=== PATIENT | female | born 1980 | race Caucasian/White ===

== ENCOUNTER 2016-12-21 17:17 | Inpatient (IN) | payer OTHER ==
[2016-12-21] VITALS (60 sets, daily range): BP systolic 102; BP diastolic 53; PULSE 80–110; RESP 18; TEMP 98.2
[~2016-12-21] VITALS: Ht 154.9 cm; Wt 70.0 kg
[2016-12-21] MEDS ORDERED: LACTATED RINGER'S 1000 ML INJ 1,000 ML IV PRN (18:11)
[2016-12-21] MEDS ORDERED: OXYTOCIN 30 UNITS-500ML PREMIX 500 ML IV ONE (18:15)
[2016-12-21] MEDS ORDERED: OXYTOCIN 30 UNITS-500ML PREMIX 500 ML IV SCH (18:15)
[2016-12-21] MEDS ORDERED: SODIUM CHLORIDE 0.9% FLUSH 10 ML FLUSH IV FLUSH PRN (18:15)
[2016-12-21] MEDS ORDERED: CITRIC ACID-SODIUM CITRATE LIQ 30 ML UDC PO SCH (18:15)
[2016-12-21] MEDS ORDERED: SODIUM CHLORID 0.9% 500 ML INJ 500 ML IV PRN (18:15)
[2016-12-21] MEDS ORDERED: DINOPROSTONE 10 MG VAG INSERT VAGINAL ONE (18:15)
[2016-12-21] MEDS ORDERED: LIDOCAINE HCL 1% 50 ML VIAL I-DERMAL PRN (18:15)
[2016-12-21] MEDS ORDERED: MINERAL OIL 10 ML VIAL TOPICAL PRN (18:15)
[2016-12-21] MEDS ORDERED: LIDOCAINE HCL 1% 50 ML VIAL INFIL PRN (18:15)
[2016-12-21] MEDS ORDERED: PREN29TA PO (18:22)
[2016-12-21] MEDS ORDERED: SODIUM CHLOR 0.9% 1000 ML INJ 1,000 ML IV PRN (18:31)
[2016-12-21] MEDS: LACTATED RINGER'S 1000 ML INJ 1,000 ML IV SCH ×2 (18:44→22:24)
[2016-12-21 19:06] LABS: AUTOMATED NEUTROPHIL # 8.8 TH/MM3 (1.8-7.7); BASOPHIL % 0.3 % (0.0-2.0); EOSINOPHIL # 0.3 TH/MM3 (0-0.4); EOSINOPHIL % 2.1 % (0.0-4.0); HEMATOCRIT 38.8 % (35.0-46.0); HEMO FLAGS DIFF FINAL; LYMPH % 18.9 % (9.0-44.0); LYMPHOCYTE # 2.3 TH/MM3 (1.0-4.8); MEAN CELL VOLUME 88.2 FL (80.0-100.0); MEAN CORPUSCULAR HEMOGLOBIN 30.3 PG (27.0-34.0); MEAN CORPUSCULAR HGB CONC 34.3 % (32.0-36.0); MONO % 6.6 % (0.0-8.0); NEUT % 72.1 % (16.0-70.0); PLATELET COUNT 241 TH/MM3 (150-450); RED CELL DISTRIBUTION WIDTH 13.8 % (11.6-17.2); WHITE BLOOD COUNT 12.2 TH/MM3 (4.0-11.0)
[2016-12-21 19:09] LABS: BLOOD, URINE NEG (NEG); COMMENT (UR) CULT NOT INDICATED; CULTURE IF INDICATED CULT NOT INDICATED; GLUCOSE,URINE NEG (NEG); KETONE, URINE NEG (NEG); MUCUS URINE FEW /lpf (OCC); NITRITE,URINE NEG (NEG); PH, URINE 5.5 (5.0-8.5); SQUAMOUS EPITHELIAL CELL URINE <1 /hpf (0-5); URINE COLOR YELLOW (YELLW/STRAW)
[2016-12-21] MEDS: SODIUM CHLORIDE 0.9% FLUSH 10 ML FLUSH IV FLUSH SCH (21:00)
[2016-12-22] VITALS (217 sets, daily range): BP systolic 78–126; BP diastolic 52–87; PULSE 48–149; RESP 16–21; TEMP 97.9–99.6
[2016-12-22] MEDS: LACTATED RINGER'S 1000 ML INJ 1,000 ML IV SCH ×2 (06:25→11:13)
[2016-12-22] MEDS: SODIUM CHLORIDE 0.9% FLUSH 10 ML FLUSH IV FLUSH SCH (07:22)
--- NOTE | 2016-12-22 09:12 | MH ---
cc: SHERRY LEE DATE OF ADMISSION: 12/21/2016 HISTORY OF PRESENT ILLNESS The patient is a 36-year-old, 1, para 0, who presented to the office complaining of decreased movement. The patient had a biophysical profile performed that showed an CAMERON of 6.2 and thus presents for induction of labor at 39+ weeks gestation. She denied leakage of fluid, vaginal bleeding or regular contractions. PAST MEDICAL HISTORY Negative. PAST SURGICAL HISTORY Negative. OB HISTORY This is her first . [employer] HISTORY No history of STDs or abnormal Pap smears. SOCIAL HISTORY Negative for cigarettes, alcohol or street drugs. The patient is and is a homemaker. FAMILY HISTORY Her maternal grandmother had bladder cancer. Siblings with hypertension. ALLERGIES None. PHYSICAL EXAMINATION VITAL SIGNS: She is afebrile. Height 5 feet 1 inch, weight 155. Blood pressure 102/66. GENERAL: She is in no acute distress. HEART: Regular rate and rhythm. LUNGS: Clear to auscultation bilaterally. ABDOMEN: Gravid, nontender. EXTREMITIES: 1-2+ lower extremity edema bilaterally. No tenderness. IMPRESSION at 39+ weeks gestation with equivocal CAMERON for induction of labor. The patient is status post Cervidil, is currently receiving Pitocin. Membranes have been artificially ruptured for clear fluid. Her Group-B strep is negative. PLAN Continue Pitocin and anticipate vaginal delivery. Sherry Lee MD TEG/BT /8:56 AM /9:03 AM
[2016-12-22] MEDS ORDERED: INFLUENZA VIRUS VACCINE (QUADRIVALENT) 0.5 ML SYR IM ONE (10:00)
[2016-12-22] MEDS: ONDANSETRON HCL 4 MG/2 ML VIAL IV PUSH PRN ×2 (11:13→21:03)
[2016-12-22] MEDS ORDERED: ePHEDrine/NS 25 MG/5 ML SYR ONE (11:24)
[2016-12-22] MEDS ORDERED: fentaNYL 2MCG-BUPIV 0.125% INJ 100 ML ONE (11:24)
[2016-12-22] MEDS ORDERED: NO SYSTEM NARCOTICS PRN (14:00)
[2016-12-22] MEDS ORDERED: DO NOT ADMINISTER ANTICOAGULANTS PRN (14:00)
[2016-12-22] MEDS ORDERED: ePHEDrine/NS 25 MG/5 ML SYR IV PUSH PRN (14:00)
[2016-12-22] MEDS: fentaNYL 2MCG-BUPIV 0.125% 100 ML EPIDURAL SCH (18:52)
--- NOTE | 2016-12-22 22:53 | PD.LABORPN ---
Subjective Subjective pt comfortable with contractions. Objective Vital Signs Vital Signs Date Time Temp Pulse Resp B/P (MAP) Pulse Ox O2 Delivery O2 Flow Rate FiO2 12/22/16 21:55 18 12/22/16 21:30 99.0 104 122/79 (93) 12/22/16 21:01 16 12/22/16 20:30 94 118/67 (84) 12/22/16 20:00 91 107/59 (75) 12/22/16 19:45 99.0 12/22/16 19:32 16 12/22/16 19:30 89 104/58 (73) 12/22/16 19:00 94 121/75 (90) 12/22/16 19:00 98.0 16 12/22/16 18:32 85 115/52 (73) 12/22/16 18:30 85 78/57 (64) 12/22/16 18:10 90 12/22/16 18:05 102 12/22/16 18:00 96 109/63 (78) 12/22/16 18:00 99 12/22/16 17:55 107 12/22/16 17:50 101 12/22/16 17:45 113 12/22/16 17:40 96 12/22/16 17:35 105 12/22/16 17:30 94 110/74 (86) 12/22/16 17:25 88 12/22/16 17:20 92 12/22/16 17:15 89 12/22/16 17:10 87 12/22/16 17:05 91 12/22/16 17:00 91 110/66 (81) 12/22/16 17:00 88 12/22/16 16:50 96 12/22/16 16:45 91 12/22/16 16:40 95 12/22/16 16:35 94 12/22/16 16:30 95 126/75 (92) 12/22/16 16:30 100 12/22/16 16:25 93 12/22/16 16:20 93 12/22/16 16:15 88 12/22/16 16:10 87 12/22/16 16:05 88 12/22/16 16:00 91 115/71 (86) 12/22/16 15:55 89 12/22/16 15:50 90 12/22/16 15:45 91 12/22/16 15:40 108 12/22/16 15:35 86 12/22/16 15:30 84 12/22/16 15:30 98.2 12/22/16 15:30 80 106/58 (74) 12/22/16 15:25 84 12/22/16 15:20 78 12/22/16 15:15 76 12/22/16 15:05 81 12/22/16 15:00 107/72 (84) 12/22/16 15:00 85 12/22/16 14:55 75 12/22/16 14:50 78 Objective Pelvic Exam: Cervix: [-] Dilatation: [-] 6-7/90/-2 Effacement: [-] Station: [-] Presentation: [-] Membranes: [intact or ruptured] ruptured Uterine Contractions: [-] quiet FHT's: Category: [-] 1 Baseline: [-] 140s Reactive: [-] reactive Variability: [-] Decels: [-] Weeks Gestation: 39 Gest Age Assessed Date: Dec 22, 2016 Gest Age Assessed Time: 08:55 Pt started active labor?: No Medical induction of labor?: Yes Medical induction start date: Dec 21, 2016 Medical induction start time: 17:19 Artificial rupture of membrane: Yes Artificial ROM date: Dec 22, 2016 Artifical ROM time: 08:55 Assessment/Plan Problem List: (1) CAMERON (amniotic fluid index) decreased ICD Codes: O28.8 - Other abnormal findings on screening of mother Status: Acute Plan: pt s/p cervidil and pit to 28, turned off for 1 hour. pt wants to try to avoid . reviewed restarting pit in attempts to get to adequate MVUs. okay to proceed as long as reassuring fhts and afebrile. reviewed that pt is off of labor curve and is indicated. all questions answered. Sherry Levine MD Dec 22, 2016 22:53
[2016-12-23] VITALS (24 sets, daily range): BP systolic 101–134; BP diastolic 57–82; PULSE 84–124; RESP 16–18; TEMP 98.2–100.5; O2SAT 97–99
[2016-12-23] MEDS ORDERED: BUPIVACAINE HCL PF 0.25% 10 ML VIAL ONE (01:41)
[2016-12-23] MEDS: LACTATED RINGER'S 1000 ML INJ 1,000 ML IV SCH (02:11)
[2016-12-23] MEDS ORDERED: AMPICILLIN/SULBAC 3 GM/NS 100 ML IV SCH ×2 (04:15)
[2016-12-23] MEDS ORDERED: ACETAMINOPHEN 325 MG TAB PO SCH (04:15)
[2016-12-23] MEDS: fentaNYL 2MCG-BUPIV 0.125% 100 ML EPIDURAL SCH (04:20)
[2016-12-23] MEDS ORDERED: ONDANSETRON HCL 4 MG/2 ML VIAL IV PUSH PRN (06:15)
[2016-12-23] MEDS ORDERED: LACTATED RINGER'S 1000 ML INJ 1,000 ML IV ONE ×2 (06:15→12:00)
[2016-12-23] MEDS ORDERED: OXYTOCIN 30 UNITS-500ML PREMIX 500 ML IV ONE (06:15)
[2016-12-23] MEDS ORDERED: OXYTOCIN 10 UNIT/ML AMP XX ONE (06:15)
[2016-12-23] MEDS ORDERED: oxyCODONE/ACETAMINOPHEN 5 MG/325 MG TAB PO PRN (06:15)
[2016-12-23] MEDS ORDERED: KETOROLAC TROMETHAMINE 60 MG/2 ML (IM) VIAL IM PRN ×2 (06:15)
[2016-12-23] MEDS ORDERED: ACETAMINOPHEN 1000 MG/100 ML 100 ML IV ONE ×2 (06:15→07:47)
[2016-12-23] MEDS ORDERED: SODIUM CHLORIDE 0.9% FLUSH 10 ML FLUSH IV FLUSH PRN (06:15)
[2016-12-23] MEDS ORDERED: OXYTOCIN 10 UNIT/ML AMP XX PRN (06:15)
[2016-12-23] MEDS ORDERED: ZOLPIDEM TARTRATE 5 MG TAB PO PRN (06:15)
--- NOTE | 2016-12-23 06:24 | PD.LABORPN ---
Subjective Subjective pt comfortable with epidural Objective Vital Signs Vital Signs Date Time Temp Pulse Resp B/P (MAP) Pulse Ox O2 Delivery O2 Flow Rate FiO2 12/23/16 05:51 16 12/23/16 05:30 124 123/82 (96) 12/23/16 05:00 114 134/70 (91) 12/23/16 04:55 99.7 12/23/16 04:30 104 122/61 (81) 12/23/16 03:56 100.5 12/23/16 03:30 103 129/71 (90) 12/23/16 03:10 18 12/23/16 03:00 101 18 114/79 (91) 12/23/16 02:30 101 112/74 (87) 12/23/16 01:11 98.9 12/23/16 01:09 18 12/23/16 01:00 92 119/67 (84) 12/23/16 00:30 104 130/74 (92) 12/23/16 00:22 18 12/23/16 00:00 100 110/58 (75) 12/22/16 23:47 18 12/22/16 23:31 105 117/67 (84) 12/22/16 23:14 99.6 12/22/16 22:30 108 122/69 (86) Objective Pelvic Exam: Cervix: [-] Dilatation: [-] 7-8 Effacement: [-] 90 Station: [-] -2 Presentation: [-] +molding Membranes: [intact or ruptured] ruptured Uterine Contractions: [-] FHT's: Category: [-] 1 Baseline: [-] 140s Reactive: [-] yes Variability: [-] Decels: [-] Weeks Gestation: 39 Gest Age Assessed Date: Dec 22, 2016 Gest Age Assessed Time: 08:55 Pt started active labor?: No Medical induction of labor?: Yes Medical induction start date: Dec 21, 2016 Medical induction start time: 17:19 Artificial rupture of membrane: Yes Artificial ROM date: Dec 22, 2016 Artifical ROM time: 08:55 Assessment/Plan Problem List: (1) Failure to progress in labor ICD Codes: O62.2 - Other uterine inertia Status: Acute Plan: reviewed exam and position. recommended . pt and agree. r/b/alt reviewed. all questions answered. will proceed. Sherry Levine MD Dec 23, 2016 06:24
[2016-12-23] MEDS ORDERED: LACTATED RINGER'S 1000 ML INJ 1,000 ML IV SCH ×2 (06:45→11:15)
[2016-12-23] MEDS ORDERED: METHYLERGONOVINE MALEATE 0.2 MG/ML VIAL ONE (06:51)
[2016-12-23] MEDS ORDERED: ceFAZolin 2 GM PREMIX 50 ML IV SCH (07:15)
[2016-12-23] MEDS ORDERED: CITRIC ACID-SODIUM CITRATE LIQ 30 ML UDC PO SCH (07:45)
[2016-12-23] MEDS ORDERED: SODIUM CHLORIDE 0.9% FLUSH 10 ML FLUSH IV FLUSH SCH (09:00)
[2016-12-23] MEDS ORDERED: KETOROLAC TROMETHAMINE 60 MG/2 ML (IM) VIAL IM ONE (09:03)
[2016-12-23] MEDS ORDERED: EPIDURAL-DO NOT ADMINISTER ANTICOAGULANTS PRN (10:15)
[2016-12-23] MEDS ORDERED: EPIDURAL-NO SYSTEMIC NARCOTICS PRN (10:15)
[2016-12-23] MEDS ORDERED: EPIDURAL-NALOXONE HCL 0.4 MG/ML AMP IV PUSH PRN (10:15)
[2016-12-23] MEDS ORDERED: EPIDURAL-DIPHENHYDRAMINE HCL 50 MG CAP PO PRN (10:15)
[2016-12-23] MEDS ORDERED: EPIDURAL-DIPHENHYDRAMINE HCL 50 MG/ML VIAL IV PUSH PRN (10:15)
[2016-12-23] MEDS ORDERED: OXYTOCIN 10 UNIT/ML AMP IV ONE (12:00)
[2016-12-23] MEDS ORDERED: MORPHINE SULFATE PF 5 MG/10 ML VIAL ONE (12:00)
[2016-12-23] MEDS ORDERED: LIDOCAINE 2%/EPINEPHrine PF 1:200,000 20ML SDV OTHER ONE (12:00)
[2016-12-23] MEDS ORDERED: DEXAMETHASONE SOD PHOS 4 MG/ML VIAL IV ONE (12:00)
[2016-12-23] MEDS ORDERED: PHENYLEPH/NS 1000 MCG/10 ML SYR IV ONE (12:00)
[2016-12-23] MEDS ORDERED: ONDANSETRON HCL 4 MG/2 ML VIAL IV PUSH ONE (12:00)
[2016-12-23] MEDS ORDERED: ceFAZolin INJ 1,000 MG VIAL IV ONE (12:00)
--- NOTE | 2016-12-23 15:28 | MP ---
cc: SHERRY LEE DATE OF SURGERY 12/23/2016 PREOPERATIVE DIAGNOSIS Intrauterine at 39+ weeks gestation, decreased movement, low amniotic fluid index, failure to progress. POSTOPERATIVE DIAGNOSIS Intrauterine at 39+ weeks gestation, decreased movement, low amniotic fluid index, failure to progress. Delivery of viable male . SURGEON Sherry Lee MD ANESTHESIA Epidural. DRAINS King to gravity. SPECIMENS Cord blood. COUNTS Correct x2. DISPOSITION Stable in the PACU. FINDINGS Grossly normal uterus, tubes and ovaries bilaterally and baby was direct OT presentation with a double nuchal cord and shoulder cord. Weight was 7, 14. 's were 9/9. DESCRIPTION OF PROCEDURE After informed consent was obtained the patient was prepped and draped in normal sterile fashion for surgery. A Pfannenstiel skin incision was made two fingerbreadths above the pubic symphysis and carried down to the underlying layer of fascia using the Bovie. The fascia was incised in the midline. The fascial incision was extended laterally digitally. Olman clamps were used to elevate the fascia and the rectus muscles were dissected off superiorly and inferiorly. The rectus muscles were in midline. The peritoneum was identified and entered bluntly. The bladder blade inserted. The vesicouterine peritoneum was identified, tented up and entered sharply. The bladder blade reinserted. Next, a transverse incision was made on the lower uterine segment until a layer just exposing membranes. These are ruptured. The uterine incision was extended laterally digitally. The vertex is then delivered atraumatically. The nuchal cords are reduced along with the shoulder cord. The baby is then passed off to the awaiting nursery team. Cord bloods were obtained. Placenta was removed, manually intact and noted to have a three-vessel cord. The uterus is exteriorized, cleared of all clot and debris. The uterine incision is repaired using one chromic suture in a running locked fashion. A second layer is then placed in an imbricating fashion with good hemostatic with result. Once this was done, tubes and ovaries again were inspected, grossly within normal limits. The uterus was returned to the abdominal cavity. The gutters were cleared of all clot and debris. Seprafilm was placed over the incision. The rectus muscles were reapproximated using 0 chromic suture. The fascia was reapproximated using 0 Vicryl suture in a running fashion. The subcutaneous fat is irrigated and made hemostatic and reapproximated using 3-0 chromic. Finally, the skin is closed using 3-0 Monocryl suture in subcuticular fashion. The patient is then taken to the recovery room in stable condition. MD NEMESIO Harris/EO /7:29 AM /3:17 PM
[2016-12-23] MEDS: oxyCODONE/ACETAMINOPHEN 5 MG/325 MG TAB PO PRN ×2 (15:37→22:29)
[2016-12-23] MEDS: IBUPROFEN 600 MG TAB PO PRN ×2 (15:38→22:29)
[2016-12-23] MEDS: DOCUSATE SODIUM 50 MG/SENNA 8.6 MG TAB PO PRN (15:38)
[2016-12-23] MEDS: SIMETHICONE 80 MG CHEWABLE TAB PO PRN (15:38)
[2016-12-23] MEDS ORDERED: OXYTOCIN 30 UNITS-500ML PREMIX 500 ML IV PRN (16:15)
[2016-12-24 01:00] VITALS: BP 100/68; PULSE 88; RESP 18; TEMP 97.5
[2016-12-24] MEDS: oxyCODONE/ACETAMINOPHEN 5 MG/325 MG TAB PO PRN ×5 (01:59→22:54)
[2016-12-24 05:50] VITALS: BP 100/69; PULSE 80; RESP 18; TEMP 98
[2016-12-24] MEDS: IBUPROFEN 600 MG TAB PO PRN ×3 (06:04→18:01)
[2016-12-24 08:00] VITALS: BP 94/61; PULSE 84; RESP 18; TEMP 97.4
[2016-12-24 09:16] LABS: AUTOMATED NEUTROPHIL # 18.3 TH/MM3 (1.8-7.7); BASOPHIL # 0.1 TH/MM3 (0-0.2); BASOPHIL % 0.2 % (0.0-2.0); EOSINOPHIL # 0.4 TH/MM3 (0-0.4); EOSINOPHIL % 1.6 % (0.0-4.0); HEMATOCRIT 33.6 % (35.0-46.0); HEMO FLAGS DIFF FINAL; LYMPH % 13.9 % (9.0-44.0); LYMPHOCYTE # 3.3 TH/MM3 (1.0-4.8); MEAN CELL VOLUME 88.5 FL (80.0-100.0); MEAN CORPUSCULAR HEMOGLOBIN 30.3 PG (27.0-34.0); MEAN CORPUSCULAR HGB CONC 34.2 % (32.0-36.0); MONO % 6.6 % (0.0-8.0); NEUT % 77.7 % (16.0-70.0); PLATELET COUNT 257 TH/MM3 (150-450); RED CELL DISTRIBUTION WIDTH 14.3 % (11.6-17.2); WHITE BLOOD COUNT 23.6 TH/MM3 (4.0-11.0)
[2016-12-24 15:00] VITALS: TEMP 97.9
[2016-12-24] MEDS ORDERED: DIPHTH/TETANUS/ACEL PERTUSSIS (BOOSTER) 0.5 ML VIAL/PFS IM ONE (16:00)
[2016-12-24] MEDS ORDERED: MEASLES, MUMPS, RUBELLA VACCINE 0.5 ML VIAL SQ ONE (16:00)
--- NOTE | 2016-12-24 16:59 | HHI.OB ---
Subjective Post Operative Day: 1 Remarks Pt doing well, tolerating po, good pain control Objective Vitals/I&O Vital Signs Date Time Temp Pulse Resp B/P (MAP) Pulse Ox O2 Delivery O2 Flow Rate FiO2 12/24/16 15:00 97.9 12/24/16 08:00 97.4 84 18 12/24/16 08:00 94/61 (72) 12/24/16 05:50 80 18 100/69 (79) 12/24/16 05:50 98.0 12/24/16 01:00 97.5 88 18 12/24/16 01:00 100/68 (79) 12/23/16 20:00 98.2 94 18 104/64 (77) Result Diagram: 12/24/16 0856 Objective Remarks GENERAL: Well-nourished, well-developed patient. CARDIOVASCULAR: Regular rate and rhythm without murmurs, gallops, or rubs. RESPIRATORY: Breath sounds equal bilaterally. No accessory muscle use. ABDOMEN/GI: Abdomen soft, non-tender, bowel sounds present. Incision: Clean, dry and intact. Fundus: Firm, non-tender at umbilicus. GENITOURINARY: Light to moderate bleeding. EXTREMITIES: No cyanosis or edema, non-tender, without signs of DVT. Medications and IVs Current Medications Medications (Trade) Dose Ordered Sig/Susana Route Start Time Stop Time Status Last Admin (fentaNYL INJ) 50 mcg Q1H PRN IV PUSH 12/21/16 18:15 (fentaNYL INJ) 100 mcg Q1H PRN IV PUSH 12/21/16 18:15 (Muri-Lube Oil) 10 ml UNSCH PRN TOPICAL 12/21/16 18:15 Fentanyl/ Bupivacaine HCl 100 ml @ 0 mls/hr TITRATE EPIDURAL 12/22/16 14:00 12/23/16 04:20 Lactated Ringer's 1,000 ml @ 150 mls/hr Q6H40M IV 12/23/16 06:45 Cefazolin Sodium/ Dextrose 50 ml @ 100 mls/hr DRAY DRIVER IV 12/23/16 07:15 12/27/16 07:14 (Bicitra Liq) 30 ml DRAY DRIVER PO 12/23/16 07:45 12/27/16 07:44 (NS Flush) 2 ml BID IV FLUSH 12/23/16 09:00 (NS Flush) 2 ml UNSCH PRN IV FLUSH 12/23/16 06:15 (Mylicon Chew) 80 mg QID PRN PO 12/23/16 06:15 12/23/16 15:38 (Motrin) 600 mg Q6H PRN PO 12/23/16 06:15 12/24/16 11:56 (Percocet 5-325 Mg) 1 tab Q4H PRN PO 12/23/16 06:15 12/24/16 11:56 (Percocet 5-325 Mg) 2 tab Q4H PRN PO 12/23/16 06:15 (Ro-Colace) 2 tab Q12H PRN PO 12/23/16 06:15 12/23/16 15:38 (Ambien) 5 mg HS PRN PO 12/23/16 06:15 (Zofran Inj) 4 mg Q6H PRN IV PUSH 12/23/16 06:15 Assessment/Plan Problem List: (1) Failure to progress in labor ICD Codes: O62.2 - Other uterine inertia Status: Acute Plan: reviewed exam and position. recommended . pt and agree. r/b/alt reviewed. all questions answered. will proceed. Lita Longoria MD Dec 24, 2016 16:59
[2016-12-24] MEDS: SIMETHICONE 80 MG CHEWABLE TAB PO PRN (18:00)
[2016-12-24] MEDS: DOCUSATE SODIUM 50 MG/SENNA 8.6 MG TAB PO PRN (18:01)
[2016-12-24 21:30] VITALS: BP 122/67; PULSE 88
[2016-12-25] MEDS: IBUPROFEN 600 MG TAB PO PRN ×3 (05:17→22:52)
[2016-12-25] MEDS: oxyCODONE/ACETAMINOPHEN 5 MG/325 MG TAB PO PRN ×2 (05:17→22:54)
[2016-12-25] MEDS: DOCUSATE SODIUM 50 MG/SENNA 8.6 MG TAB PO PRN ×2 (05:18→22:51)
[2016-12-25 07:55] LABS: AUTOMATED NEUTROPHIL # 11.7 TH/MM3 (1.8-7.7); BASOPHIL % 0.3 % (0.0-2.0); EOSINOPHIL # 0.4 TH/MM3 (0-0.4); EOSINOPHIL % 2.5 % (0.0-4.0); HEMATOCRIT 28.6 % (35.0-46.0); HEMO FLAGS DIFF FINAL; LYMPH % 15.2 % (9.0-44.0); LYMPHOCYTE # 2.3 TH/MM3 (1.0-4.8); MEAN CELL VOLUME 88.7 FL (80.0-100.0); MEAN CORPUSCULAR HGB CONC 33.8 % (32.0-36.0); MONO % 5.3 % (0.0-8.0); NEUT % 76.7 % (16.0-70.0); PLATELET COUNT 278 TH/MM3 (150-450); RED BLOOD COUNT 3.22 MIL/MM3 (4.00-5.30); WHITE BLOOD COUNT 15.2 TH/MM3 (4.0-11.0)
[2016-12-25 08:00] VITALS: BP 116/71; PULSE 91; RESP 16; TEMP 97.9
--- NOTE | 2016-12-25 10:20 | HHI.OB ---
Subjective Post Operative Day: 2 Remarks pain controlled, mod lochia, gallito po, +void/flatus Objective Vitals/I&O Vital Signs Date Time Temp Pulse Resp B/P (MAP) Pulse Ox O2 Delivery O2 Flow Rate FiO2 12/25/16 08:00 97.9 91 16 116/71 (86) 12/24/16 21:30 88 122/67 (85) 12/24/16 15:00 97.9 Result Diagram: 12/25/16 0732 Objective Remarks GENERAL: Well-nourished, well-developed patient. CARDIOVASCULAR: Regular rate and rhythm without murmurs, gallops, or rubs. RESPIRATORY: Breath sounds equal bilaterally. No accessory muscle use. ABDOMEN/GI: Abdomen soft, non-tender, bowel sounds present. Incision: Clean, dry and intact. Fundus: Firm, non-tender at umbilicus. GENITOURINARY: Light to moderate bleeding. EXTREMITIES: No cyanosis or edema, non-tender, without signs of DVT. Medications and IVs Current Medications Medications (Trade) Dose Ordered Sig/Susana Route Start Time Stop Time Status Last Admin (fentaNYL INJ) 50 mcg Q1H PRN IV PUSH 12/21/16 18:15 (fentaNYL INJ) 100 mcg Q1H PRN IV PUSH 12/21/16 18:15 (Muri-Lube Oil) 10 ml UNSCH PRN TOPICAL 12/21/16 18:15 Fentanyl/ Bupivacaine HCl 100 ml @ 0 mls/hr TITRATE EPIDURAL 12/22/16 14:00 12/23/16 04:20 Lactated Ringer's 1,000 ml @ 150 mls/hr Q6H40M IV 12/23/16 06:45 Cefazolin Sodium/ Dextrose 50 ml @ 100 mls/hr OPERATIONS ASST IV 12/23/16 07:15 12/27/16 07:14 (Bicitra Liq) 30 ml OPERATIONS ASST PO 12/23/16 07:45 12/27/16 07:44 (NS Flush) 2 ml BID IV FLUSH 12/23/16 09:00 (NS Flush) 2 ml UNSCH PRN IV FLUSH 12/23/16 06:15 (Mylicon Chew) 80 mg QID PRN PO 12/23/16 06:15 12/24/16 18:00 (Motrin) 600 mg Q6H PRN PO 12/23/16 06:15 12/25/16 05:17 (Percocet 5-325 Mg) 1 tab Q4H PRN PO 12/23/16 06:15 12/25/16 05:17 (Percocet 5-325 Mg) 2 tab Q4H PRN PO 12/23/16 06:15 (Ro-Colace) 2 tab Q12H PRN PO 12/23/16 06:15 12/25/16 05:18 (Ambien) 5 mg HS PRN PO 12/23/16 06:15 (Zofran Inj) 4 mg Q6H PRN IV PUSH 12/23/16 06:15 Assessment/Plan Problem List: (1) delivery, delivered, current hospitalization ICD Codes: O82 - Encounter for delivery without indication Plan: wbc decreasing routine pp care Sherry Levine MD Dec 25, 2016 10:20
[2016-12-25] MEDS ORDERED: DIPHTH/TETANUS/ACEL PERTUSSIS (BOOSTER) 0.5 ML VIAL/PFS IM ONE (12:00)
[2016-12-25] MEDS ORDERED: INFLUENZA VIRUS VACCINE (QUADRIVALENT) 0.5 ML SYR IM ONE (13:15)
[2016-12-25] MEDS: SIMETHICONE 80 MG CHEWABLE TAB PO PRN ×2 (14:04→22:51)
[2016-12-25 19:40] VITALS: BP 111/76; PULSE 89; RESP 16; TEMP 98.4
[2016-12-26] MEDS ORDERED: IBUP-232 PO (07:02)
[2016-12-26] MEDS ORDERED: OXYC1TAB63 PO (07:02)
--- NOTE | 2016-12-26 07:03 | HHI.DCPOC ---
Discharge Care Plan Diagnosis: (1) delivery, delivered, current hospitalization Your Health Problems Are: delivery Report Symptoms to Your Doctor -Temperature above 100.5 degrees -Redness, of incision or excessive or foul smelling drainage -Unusual pain or calf pain -Increased vaginal bleeding -Painful or difficulty urinating -Feelings of extreme sadness or anxiety after 2 weeks Goals to Promote Your Health * To prevent worsening of your condition and complications * To maintain your health at the optimal level Directions to Meet Your Goals Take your medications as prescribed Follow your dietary instruction Follow activity as directed Ensure plenty of rest for recovery Drink fluids for hydration Keep your appointments as scheduled Take your immunizations and boosters as scheduled If your symptoms worsen call your PCP, if no PCP go to Urgent Care Center or Emergency Room Smoking is Dangerous to Your Health. Avoid second hand smoke Call the 24-hour crisis hotline for domestic abuse at Sherry Levine MD Dec 26, 2016 07:03
--- NOTE | 2016-12-26 07:06 | HHI.DS ---
Admission Date Dec 21, 2016 at 17:17 Discharge Date: Dec 26, 2016 Admitting Diagnosis IUP@ term, low isaias, induction, failure to progress Diagnosis: Delivery Date: Dec 23, 2016 : Primary Reason: failure to progress : Male Hospital Course pt presented for induction for low isaias, she received cervidil and pitocin. she progressed to 7-8 cm then arrested. she had an uncomplicated then by POD 3 she was voiding, passing gas, with good pain control and stable for d/c home. Pt Condition on Discharge: Stable Discharge Disposition: Discharge Home Discharge Instructions Diet Instructions: As Tolerated, No Restrictions Additional Diet Instructions: Drink at least 8 - 16 oz bottles of water a day Activities You Can Perform: Shower Only-No Bath Activities to Avoid: Prolonged Standing, Strenuous Activity, Sexual Activity Additional Activity Instruc.: No driving until off pain medications Do not lift anything heavier than your baby in an carrier Sherry Levine MD Dec 26, 2016 07:06
[2016-12-26] MEDS: IBUPROFEN 600 MG TAB PO PRN (07:40)
[2016-12-26] MEDS: oxyCODONE/ACETAMINOPHEN 5 MG/325 MG TAB PO PRN (07:40)
[2016-12-26] MEDS: SIMETHICONE 80 MG CHEWABLE TAB PO PRN (11:20)
== END 2016-12-26 13:35 | disposition home or self-care (01) | DRG 766 ==
LOC: H2EA 17:17 → H1EA 12-23 09:30
PROVIDERS: ADMIT Obstetrics & Gynecology; ATTEND Obstetrics & Gynecology
PROC: 3E0P7VZ Introduction of Hormone into Female Reproductive, Via Natural or Artificial Opening (ICD-10-PCS; 2016-12-21)
PROC: 3E0P3VZ Introduction of Hormone into Female Reproductive, Percutaneous Approach (ICD-10-PCS; 2016-12-21)
PROC: 10907ZC Drainage of Amniotic Fluid, Therapeutic from Products of Conception, Via Natural or Artificial Opening (ICD-10-PCS; 2016-12-22)
PROC: 10D00Z1 Extraction of Products of Conception, Low, Open Approach (ICD-10-PCS; principal; 2016-12-23)
PROC: 3E0P05Z Introduction of Adhesion Barrier into Female Reproductive, Open Approach (ICD-10-PCS; 2016-12-23)
DX: O36.8130 Decreased fetal movements, third trimester, not applicable or unspecified (principal); O69.81X0 Labor and delivery complicated by cord around neck, without compression, not applicable or unspecified; O62.2 Other uterine inertia; O28.8 Other abnormal findings on antenatal screening of mother; Z23 Encounter for immunization; Z3A.39 39 weeks gestation of pregnancy; Z37.0 Single live birth
CPT/HCPCS: 59025; 81001; 85025; 85461; 86850; 86900; 86901; 90384; 90686; 90715; J0131; J0295; J0690; J1100; J1885; J2210; J2274; J2370; J2405; J2590; J2790; J7120; Q2038